=== PATIENT | male | born 1985 | race Caucasian/White ===

== ENCOUNTER 2017-12-28 09:00 | Emergency (ER) | payer OTHER, SELFPAY ==
[2017-12-28 09:02] VITALS: BP 124/62; PULSE 54; RESP 16; TEMP 36.7; O2SAT 100; BMI 25.7
[2017-12-28] MEDS: Diphth,Pertuss(Acell),Tet Vac 0.5 ML Vial IM (09:20)
[2017-12-28] MEDS: Ibuprofen 600 MG Tablet PO (09:20)
--- NOTE | 2017-12-28 10:35 | ED.VISSUMM ---
- ER Visit Summary Date of Service: 12/28/17 Chief Complaint: Right leg laceration History of Present Illness: The patient is a 32 M who is at the gym today doing a snatch-like motion when he needed to abort the move and dropped the bar. Bar came down striking his right peng causing laceration. He was able to ambulate. He notes a throbbing pain. Unknown last tetanus. Physical Examination: Afebrile vital signs are stable There is a 7 cm linear laceration mid tibia on the right leg. Neurovascular intact distally. The wound is gaping. There appears to be some separation of the fascia and the muscular attachment to the tibial fascia. This is very minimal. He still has strong dorsiflexion of the foot. Test Results: Tib-fib films were negative for fracture Emergency Department Course and Treatment: Wound was locally anesthetized using 1% lidocaine. It was washed with Shur-Clens. It was irrigated with 500 cc of sterile saline. Wound was explored. The wound was closed using a total of #14 3-0 simple interrupted Ethilon sutures. Wound was dressed and Ferdinand bandage applied to both the peng and to the ankle joint to help limit dorsiflexion and plantar flexion there. Wound care was discussed with patient. He is going to be placed on Keflex. Tetanus was updated with Adalisa. Impression: 1. Right leg laceration 7 cm with repair 2. Tetanus update This note was generated with [email or web address] dictation software. It may contain incorrect words, spelling, and punctuation that were not noted in review of the chart prior to signing ED Disposition - Plan for ED Patient: Disposition: Home or Assisted Living Chief Complaint: Laceration Instructions: ED Laceration All Prescriptions: Cephalexin [Keflex] 500 mg PO Q6 #28 cap Referrals: Matthias Verdugo III, MD [STAFF PHYSICIAN] - 10-14 Days suture removal
[2017-12-28 11:06] VITALS: BP 115/70; PULSE 60; RESP 18; O2SAT 98
== END 2017-12-28 11:07 | disposition home or self-care (01) ==
PROVIDERS: Emergency Provider Emergency Medicine
DX: S81.811A Laceration without foreign body, right lower leg, initial encounter (principal); W22.8XXA Striking against or struck by other objects, initial encounter; Y93.B9 Activity, other involving muscle strengthening exercises; Y92.9 Unspecified place or not applicable; Z23 Encounter for immunization
CPT/HCPCS: 12002; 73590; 90471; 90715; 99284

== ENCOUNTER → 2024-10-22 | Outpatient (CLI) | payer OTHER, SELFPAY | END | disposition home or self-care (01) | LOC: MTRAD 13:41 | PROVIDERS: Referring Provider Physician Assistant Surgical; Visit Provider Physician Assistant Surgical | DX: S69.90XA Unspecified injury of unspecified wrist, hand and finger(s), initial encounter (principal); X58.XXXA Exposure to other specified factors, initial encounter | CPT/HCPCS: 73140 ==